=== PATIENT | female | born 1995 | race Caucasian/White ===

== ENCOUNTER 2020-04-25 20:28 | Emergency (ER) | payer OTHER ==
[~2020-04-25] VITALS: Ht 165.1 cm; Wt 63.0 kg
[2020-04-25 20:49] VITALS: BP_SYST 102
--- NOTE | 2020-04-25 20:49 | NUR ---
Patient to ER bed 07 to gown for evaluation. Side rails up. Report given to JC Cartwright
--- NOTE | 2020-04-25 20:49 | NUR ---
Pt brought in by friend. Pt awake, alert, oriented x4. Pt ambulates with steady gait. Pt states that she has had urinary retention, frequency and buring while urinating. Pt states that she cannot fully empty her bladder at times and feels that she may need to be catherized. Pt states that she has needed catherization in the past in order to help resolve urinary tract infections. Pt denies chest pain, nausea, vomitng, diarrhea, shortness of breath, any other medical complaint at this time. Pt resting in ED bed, no distress. VSS
--- NOTE | 2020-04-25 20:55 | NUR ---
ER at bedside examining patient.
[2020-04-25 21:30] LABS: BILIRUBIN,URINE NEGATIVE (NEGATIVE); BLOOD, URINE 3+ (NEGATIVE); COLOR,URINE YELLOW (YELLOW); GLUCOSE,URINE NEGATIVE (NEGATIVE); KETONES,URINE TRACE (NEGATIVE); LEUKOCYTE ESTERASE ,URINE 1+ (NEGATIVE); NITRITE, URINE NEGATIVE (NEGATIVE); PROTEIN URINE 2+ (NEGATIVE)
[2020-04-25 21:39] LABS: CLARITY/URINE CLOUDY (CLEAR)
[2020-04-25 21:41] LABS: BACTERIA,URINE MANY /HPF (None Seen); MUCUS,URINE None Seen /LPF (None Seen); RBC,URINE 20-50 /HPF (0-3); URINE AMORPHOUS URATE 3+ /HPF (None Seen)
--- NOTE | 2020-04-25 22:00 | NUR ---
Pt resting in ED bed comfortably
[2020-04-25 22:03] LABS: BASOPHILS # (AUTO) 0.1 K/uL (0.0-0.2); BASOPHILS % (AUTO) 0.5 % (0.0-2.0); EOSINOPHILS # (AUTO) 0.1 K/uL (0.0-0.4); EOSINOPHILS % (AUTO) 0.6 % (0.0-4.0); HEMATOCRIT 36.6 % (36-48); HEMOGLOBIN 12.2 g/dL (12.0-16.0); LYMPHOCYTES % (AUTO) 16.5 % (20.5-51.5); MEAN CORPUSCULAR HEMOGLOBIN 30 pg (27-31); MEAN CORPUSCULAR HGB CONC 33 % (32-36); MEAN CORPUSCULAR VOLUME 90 fL (79.0-98.0); MONOCYTES # (AUTO) 1.2 K/uL (0.0-1.0); NEUTROPHILS # (AUTO) 8.8 K/uL (1.8-7.7); NEUTROPHILS % (AUTO) 72.4 % (40.0-70.0); PLATELET COUNT (AUTO) 275 K/uL (130-430); RED BLOOD CELL COUNT(AUTO) 4.08 MIL/uL (4.2-6.2); WHITE BLOOD COUNT (AUTO) 12.1 K/uL (4.8-10.8)
[2020-04-25] MEDS ORDERED: cefTRIAXone 1 GM in LIDOCAINE 1%, 20 ML MDV 2.1 ML IM ONE (22:15)
[2020-04-25 23:05] VITALS: BP_SYST 100
--- NOTE | 2020-04-25 23:05 | NUR ---
Patient given written and verbal discharge instructions and verbalizes understanding. ER MD discussed with patient the results and treatment provided. Patient in stable condition. ID arm band removed. No IV Rx of Keflex and Pyridium given. Patient educated on pain management and to follow up with PMD. Pain Scale 0/10. Opportunity for questions provided and answered. Medication side effect fact sheet provided.
== END 2020-04-25 23:05 | disposition home or self-care (01) ==
LOC: EDBD 20:28 → SED 20:28
DX: N39.0 Urinary tract infection, site not specified (principal)
CPT/HCPCS: 36415; 76830; 76857; 81000; 81025; 85025; 96372; 99284; J0696; J2001

== ENCOUNTER 2020-05-31 13:39 | Emergency (ER) | payer OTHER, SELFPAY ==
[~2020-05-31] VITALS: Ht 165.1 cm; Wt 59.0 kg
[2020-05-31 13:39] VITALS: BP_SYST 126
--- NOTE | 2020-05-31 13:39 | NUR ---
BROUGHT INTO OUTSIDE TENT AND TRIAGED. WILL ASSUME CARE
--- NOTE | 2020-05-31 13:55 | NUR ---
DR SHAY AT BEDSIDE FOR EVALUATION
--- NOTE | 2020-05-31 14:10 | NUR ---
PT SWABBED FOR COVID
--- NOTE | 2020-05-31 14:15 | NUR ---
Patient given written and verbal discharge instructions and verbalizes understanding. ER MD discussed with patient the results and treatment provided. Patient in stable condition. ID arm band removed. Rx of MOTRIN given. Patient educated on pain management and to follow up with PMD. Pain Scale 0/10. Opportunity for questions provided and answered. Medication side effect fact sheet provided.
== END 2020-05-31 14:15 | disposition home or self-care (01) ==
LOC: SED 13:39
DX: U07.1 COVID-19 (principal); Z87.440 Personal history of urinary (tract) infections
CPT/HCPCS: 99283; C9803; U0003

== ENCOUNTER 2020-08-22 17:15 | Emergency (ER) | payer OTHER ==
[~2020-08-22] VITALS: Ht 165.1 cm; Wt 59.0 kg
[2020-08-22 17:22] VITALS: BP_SYST 118
[2020-08-22 18:12] LABS: BILIRUBIN,URINE NEGATIVE (NEGATIVE); BLOOD, URINE NEGATIVE (NEGATIVE); COLOR,URINE YELLOW (YELLOW); GLUCOSE,URINE NEGATIVE (NEGATIVE); KETONES,URINE NEGATIVE (NEGATIVE); LEUKOCYTE ESTERASE ,URINE NEGATIVE (NEGATIVE); NITRITE, URINE NEGATIVE (NEGATIVE); PH,URINE 8.5 (5.0-8.0); PROTEIN URINE TRACE (NEGATIVE)
[2020-08-22 18:13] LABS: CLARITY/URINE SLIGHTLY HAZY (CLEAR)
[2020-08-22] MEDS ORDERED: LORazepam 2 MG/ML VIAL IVP ONE (18:15)
[2020-08-22 18:24] LABS: BASOPHILS % (AUTO) 0.5 % (0.0-2.0); EOSINOPHILS # (AUTO) 0.1 K/uL (0.0-0.4); EOSINOPHILS % (AUTO) 1.3 % (0.0-4.0); HEMATOCRIT 37.8 % (36-48); HEMOGLOBIN 12.9 g/dL (12.0-16.0); LYMPHOCYTES # (AUTO) 1.9 K/uL (1.0-5.5); LYMPHOCYTES % (AUTO) 24.6 % (20.5-51.5); MEAN CORPUSCULAR HEMOGLOBIN 30 pg (27-31); MEAN CORPUSCULAR HGB CONC 34 % (32-36); MEAN CORPUSCULAR VOLUME 88 fL (79.0-98.0); MONOCYTES # (AUTO) 0.7 K/uL (0.0-1.0); MONOCYTES % (AUTO) 8.9 % (1.7-9.3); NEUTROPHILS # (AUTO) 5.1 K/uL (1.8-7.7); NEUTROPHILS % (AUTO) 64.7 % (40.0-70.0); PLATELET COUNT (AUTO) 318 K/uL (130-430); RED BLOOD CELL COUNT(AUTO) 4.31 MIL/uL (4.2-6.2); RED CELL DISTRIBUTION WIDTH 13.5 % (9.0-15.0); WHITE BLOOD COUNT (AUTO) 7.9 K/uL (4.8-10.8)
[2020-08-22 18:26] LABS: BARBITURATE, URINE NEGATIVE (NEG <=200); BENZODIAZEPINE, URINE NEGATIVE (NEG <=150); CANNABINOID, URINE NEGATIVE (NEG <=50); COCAINE, URINE NEGATIVE (NEG <=150); METHAMPHETAMINES SCREEN,URINE POSITIVE (NEG <=500); OPIATE, URINE NEGATIVE (NEG <=100); PHENCYCLIDINE SCREEN,URINE NEGATIVE (NEG <=25); UR TRICYCLIC ANTIDEPRESSANTS NEGATIVE (NEG <=300); URINE AMPHETAMINE POSITIVE (NEG <=500); URINE METHADONE NEGATIVE (NEG <=200); URINE OXYCODONE SCREEN NEGATIVE (NEG <=100); URINE PROPOXYPHENE SCREEN NEGATIVE (NEG <=300)
[2020-08-22] MEDS ORDERED: ALPRAZolam 0.25 MG TABLET PO ONE (18:30)
[2020-08-22 18:39] LABS: CALCIUM 9.2 mg/dL (8.4-11.0); CREATININE 0.84 mg/dL (0.55-1.30); POTASSIUM 3.9 mmol/L (3.5-5.1)
[2020-08-22 18:49] LABS: ALBUMIN 4.2 g/dL (3.4-4.8); FREE T4 (FREE THYROXINE) 1.2 ng/dl (0.8-1.5); TOTAL BILIRUBIN 0.4 mg/dL (0.0-1.0)
[2020-08-22 19:08] VITALS: BP_SYST 118
== END 2020-08-22 19:09 | disposition home or self-care (01) ==
LOC: SED 17:15
DX: F41.0 Panic disorder [episodic paroxysmal anxiety] (principal); F15.10 Other stimulant abuse, uncomplicated
CPT/HCPCS: 36415; 80053; 80307; 81003; 84439; 85025; 93005; 96374; 99284; J2060